=== PATIENT | female | born 1970 | race Caucasian/White ===

== ENCOUNTER 2016-10-31 17:26 | Emergency (ER) | payer OTHER ==
[~2016-10-31] VITALS: Ht 175.3 cm; Wt 86.2 kg
--- NOTE | ~2016-10-31 | CR72 ---
[facility] A Service of [facility] & [facility] RADIOLOGY TEXT RESULTS PATIENT: LORNE PRATER LOCATION: [facility] : 74 UNIT #: [id number] AGE: [address]: Eva Dimas MD SEX: F ORDER DR: [id number] [facility] [address] [place], [place] [address] [id number] MR#: [id number] Acc #: [id number] NAME: LORNE PRATER. : 1970 SEX: F STUDY DATE/TIME: 10/31/2016 18:43 UNIT: [facility] ROOM: STUDY DESCRIPTION: CR Chest Single View Portable Attending Physician: Eva Dimas M.D. Ordering Physician: Eva Dimas M.D. Primary Care Physician: Ailyn Rueda M.D. MEDICAL IMAGING REPORT This report is preliminary unless electronic signature is present EXAM Frontal chest 10/31/2016 INDICATION 46-year-old female with cough and shortness of air since yesterday. TECHNIQUE Frontal chest. No comparisons. FINDINGS Cardiac silhouette is within normal limits for technique. The vascularity is normal. The lungs are clear. No pneumothorax. No effusion. IMPRESSION 1. Negative frontal chest. We have no comparisons. Dictated by... Marquis Salazar M.D. THIS IS AN ELECTRONICALLY VERIFIED REPORT Marquis Salazar M.D. at 11/01/2016 11:20 AM Demetria TD: 11/01/2016 10:27 JOB #: [id number] MEDICAL IMAGING REPORT Page 1 of 1 COPY
[2016-10-31 19:43] LABS: BUN/CREATININE RATIO 11.11; CALCIUM SERUM 9.2 mg/dL (8.4-10.2); CREATININE SERUM 0.9 mg/dL (0.6-1.4); GLOM FILT RATE Estimated 77.8 mL/min (>60); POTASSIUM 3.4 mmol/L (3.5-5.1)
[2016-10-31 20:15] LABS: BASOPHIL% 0.4 % (0-2.5); EOSINOPHIL# 0.7 X10e3 (0-0.7); EOSINOPHIL% 5.9 % (0.0-7.0); HEMATOCRIT 38.7 % (35.0-45.0); HEMOGLOBIN 13.2 gm/dL (12.0-16.0); LYMPHOCYTE# 2.8 X10e3 (1.0-3.5); LYMPHOCYTE% 25.3 % (17.0-45.0); MEAN CELL VOLUME 87.8 FL (83-96); MEAN CORPUSCULAR HEMOGLOBIN 29.9 PG (28-34); MEAN PLATELET VOLUME 6.9 FL (6.5-11.5); MONOCYTE% 9.5 % (3.0-12.0); NEUTROPHIL# 6.5 X10e3 (1.5-7.1); NEUTROPHIL% 58.9 % (40-75); PLATELET COUNT 287 X10e3 (140-420); RED BLOOD COUNT 4.41 X10e (3.90-5.30); RED CELL DISTRIBUTION WIDTH 14.3 % (11.0-15.5); WHITE BLOOD COUNT 11.1 X10e3 (4.0-10.5)
[2016-10-31 20:16] LABS: DIFF IND NO
== END 2016-10-31 21:55 | disposition home or self-care (01) ==
LOC: CED 17:26
PROVIDERS: Emergency Medicine
DX: J45.901 Unspecified asthma with (acute) exacerbation (principal); I10 Essential (primary) hypertension
CPT/HCPCS: 36415; 71010; 80048; 85025; 85379; 94640; 96374; 99285; J2930